=== PATIENT | female | born 1990 ===

== ENCOUNTER 2018-06-07 05:29 | Inpatient (IN) | payer OTHER ==
[~2018-06-07] VITALS: Ht 162.6 cm; Wt 88.5 kg
[2018-06-07] VITALS (13 sets, daily range): BP systolic 102–126; BP diastolic 61–86
[~2018-06-07 05:29] MED LIST: AMITRIPTYLINE25 MG ORAL; GABAPENTIN300 MG ORAL; GABAPENTIN600 MG ORAL; PRILOSEC OTC20 MG ORAL; PROZAC20 MG ORAL; SOMA350 MG PO; TRAMADOL HCL100 M2 ORAL
[2018-06-07] MEDS ORDERED: Vancomycin 1gm/D5W 275ml IVPB ONE ×2 (06:00)
[2018-06-07] MEDS ORDERED: Pantoprazole Inj IVP ONE (06:00)
[2018-06-07] MEDS ORDERED: Pantoprazole Inj ONE (06:16)
[2018-06-07] MEDS ORDERED: Vancomycin 1gm vial IVPB ONE (06:16)
[2018-06-07] MEDS ORDERED: Rocuronium Bromide 50mg/5ml Inj IV ONE (06:17)
[2018-06-07] MEDS ORDERED: LR 1000ml 1,000 ML IVLG SCH (06:20)
[2018-06-07] MEDS ORDERED: Sodium Chloride 10ml vial INJ ONE (06:24)
[2018-06-07] MEDS ORDERED: DiphenhydrAMINE 50mg/ml Inj IVP PRN (06:30)
[2018-06-07] MEDS ORDERED: Metoclopramide 10mg/2ml Inj IVP PRN (06:30)
[2018-06-07] MEDS ORDERED: HYDROcodone/Acetamin 7.5/325 tab ORAL PRN ×2 (06:30→14:00)
[2018-06-07] MEDS ORDERED: fentaNYL 100 mcg/2 mL IV PRN (06:30)
[2018-06-07] MEDS ORDERED: Labetalol 5mg/ml 20ml vial IV PRN (06:30)
[2018-06-07] MEDS ORDERED: Atropine Sulfate 0.4mg/ml inj IVP PRN (06:30)
[2018-06-07] MEDS ORDERED: Acetaminophen (Non formulary) 100 ML IV SCH (06:30)
[2018-06-07] MEDS ORDERED: oxyCODONE HCL/Acetaminophen 5/325mg ORAL PRN (06:30)
[2018-06-07] MEDS ORDERED: LORazepam Inj 2mg/ml 1ml IV PRN (06:30)
[2018-06-07] MEDS ORDERED: Ketorolac 30mg Inj IV PRN ×2 (06:30)
[2018-06-07] MEDS ORDERED: HYDROcodone/Acetamin 5/325 tab ORAL PRN (06:30)
[2018-06-07] MEDS ORDERED: Hydromorphone 0.5mg/0.5ml inj IVP PRN (06:30)
[2018-06-07] MEDS ORDERED: Midazolam 2mg/2ml Inj IVP PRN (06:30)
[2018-06-07] MEDS ORDERED: Meperidine 50mg/ml Inj(FOR RIGORS ONLY) IVP PRN (06:30)
--- NOTE | 2018-06-07 06:36 | Anethesia Preoperative Eval ---
Anesthesia Pre-op PMH/ROS General Date of Evaluation: Jun 07, 2018 Time of Evaluation: 07:41 Anesthesiologist: Justin ASA Score: ASA 2 Mallampati Score Class I : Soft palate, uvula, fauces, pillars visible Class II: Soft palate, uvula, fauces visible Class III: Soft palate, base of uvula visible Class IV: Only hard plate visible Mallampati Classification: Class II Surgeon: Marty Diagnosis: Back Pain Surgical Procedure: TLIF L5-S1 Anesthesia History: none Family History: no anesthesia problems Allergies: Coded Allergies: No Known Allergies (Unverified , 06/01/18) Medications: see eMAR Patient NPO?: Yes Past Medical History Pulmonary: Reports: asthma Other: obesity - BMI 34 PSxH Narrative: TLIF L5-S1 2017 Anesthesia Pre-op Phys. Exam Physician Exam Last Vital Signs Date Time Temp Pulse Resp B/P (MAP) Pulse Ox O2 Delivery O2 Flow Rate FiO2 06/07/18 06:08 Room Air Constitutional: NAD Neurologic: CN 2-12 intact Cardiovascular: RRR Respiratory: CTA Gastrointestinal: S/NT/ND Airway Exam Mallampati Score: Class II MO: full ROM: full Teeth: intact Anesthesia Pre-op A/P Labs Urine Test Test 06/07/18 05:45 Urine HCG, Qualitative Negative (NEGATIVE) Risk Assessment & Plan Assessment: ASA 2 Plan: GA, SED, GlideScope Go Status Change Before Surgery: No Pre-Antibiotics Dru Gram Vancomycin IV Given Within 1 Hr of Incision: Yes Time Given: 08:06 Washington Anderson MD Jun 07, 2018 06:36
[2018-06-07] MEDS ORDERED: Dexamethasone 4mg/ml vial ONE (06:51)
[2018-06-07] MEDS ORDERED: Lidocaine 1% MPF 10mg/ml 5ml ONE (06:51)
[2018-06-07] MEDS ORDERED: fentaNYL 100 mcg/2 mL IV ONE ×3 (06:52→13:17)
[2018-06-07] MEDS ORDERED: Lidocaine 1% Plain 30 ml INJ ONE ×3 (06:54→11:50)
[2018-06-07] MEDS ORDERED: Propofol 1,000mg/ 100ml btl IV ONE ×3 (07:00→08:00)
[2018-06-07] MEDS ORDERED: Heparin 1000 units/ml 1ml Vial ONE (07:03)
[2018-06-07] MEDS ORDERED: Thrombin 5000 units TOPIC ONE ×3 (07:03→10:17)
[2018-06-07] MEDS ORDERED: Bacitracin Oint 15gm Tube TOPIC ONE (07:03)
[2018-06-07] MEDS ORDERED: Bacitracin 50000 Units Vial ONE (07:04)
[2018-06-07] MEDS ORDERED: Gelfoam Size TOPIC ONE (07:04)
[2018-06-07] MEDS ORDERED: Bupivacaine w/Epi 0.5% 30ml Vial INJ ONE ×2 (07:04→09:48)
[2018-06-07] MEDS ORDERED: LR 1000ml ONE (08:00)
[2018-06-07] MEDS ORDERED: Sterile Water Irrig 1000ml IRRIG ONE (08:00)
--- NOTE | 2018-06-07 08:03 | Pre-Procedure Note/Attestation ---
Pre-Procedure Note/Attestation Complete Prior to Procedure Planned Procedure: bilateral Procedure Narrative: Revision of L5-S1 fusion, removal of pedicle screws with reinsertion, posterolateral arthrodesis, with iliac crest bone, autograft, allograft, decompression at L5-S1 and application of epidural fat graft, possible revision of L5-S1 pseudoarthrosis posterior approach Attestation I attest that I discussed the nature of the procedure; its benefits; risks and complications; and alternatives (and the risks and benefits of such alternatives ), prior to the procedure, with the patient (or the patient's legal treasury representative). I attest that, if there was a reasonable possibility of needing a blood transfusion, the patient (or the patient's legal treasury representative) was given the [place] [employer] standardized written summary, pursuant to the [place] Blood Safety Act ([place] Health and Safety Code # 1645, as amended). I attest that I re-evaluated the patient just prior to the surgery and that there has been no change in the patient's H&P, except as documented below: Kirsten Ferguson MD Jun 07, 2018 08:02
[2018-06-07] MEDS ORDERED: NS Irrig 1000ml IRRIG ONE ×2 (09:47→10:04)
[2018-06-07] MEDS ORDERED: Heparin 1000 units/ml 1ml Vial INJ ONE (10:03)
[2018-06-07] MEDS ORDERED: Bacitracin 50000 Units Vial IRRIG ONE (10:03)
[2018-06-07] MEDS ORDERED: Neostigmine 1mg/ml 10ml Inj ONE (10:51)
[2018-06-07] MEDS ORDERED: Glycopyrrolate 0.2mg/ml 1ml Vial ONE ×2 (10:51→13:03)
[2018-06-07] MEDS ORDERED: Milk of Magnesia 30ml Ud ORAL PRN (14:00)
[2018-06-07] MEDS ORDERED: traMADol 50mg tab ORAL PRN (14:00)
[2018-06-07] MEDS ORDERED: HYDROmorphone 1mg/ml Carpuject IVP PRN (14:00)
--- NOTE | 2018-06-07 14:01 | Immediate Post-Op Evaluation ---
Immediate Post-Op Evalulation Immediate Post-Op Evalulation Procedure: TLIF L5-S1 Date of Evaluation: Jun 07, 2018 IV Fluids: 700 Blood Products: 0 Estimated Blood Loss: 100 Urinary Output: 825 Blood Pressure Systolic: 126 Blood Pressure Diastolic: 83 Pulse Rate: 98 Respiratory Rate: 16 O2 Sat by Pulse Oximetry: 100 Temperature (Fahrenheit): 98.4 Pain Score (1-10): 2 Nausea: No Vomiting: No Complications 0 Patient Status: awake, reacts Hydration Status: adequate Dru Gram Vancomycin IV Given Within 1 Hr of Incision: Yes Time Given: 08:06 Washington Anderson MD Jun 07, 2018 14:01
--- NOTE | 2018-06-07 14:51 | General Progress Note ---
Progress Note Progress Note Neurosurgery PO S/ Comfortable. Incisional pain under control O/ Vs: Last 24 Hour Vital Signs Date Time Temp Pulse Resp B/P (MAP) Pulse Ox O2 Delivery O2 Flow Rate FiO2 06/07/18 14:45 98.4 06/07/18 14:40 78 13 102/67 100 Nasal Cannula 3 06/07/18 14:30 77 13 107/67 100 Nasal Cannula 3 06/07/18 14:20 82 15 125/78 100 Nasal Cannula 3 06/07/18 14:10 99 14 125/71 100 Simple Mask 6 06/07/18 14:05 96 16 126/79 100 Simple Mask 6 06/07/18 14:02 98.4 97 16 126/86 100 Simple Mask 6 06/07/18 14:01 98 16 100 06/07/18 06:30 98.4 70 20 109/75 (86) 100 06/07/18 06:08 Room Air Alert and oriented x 4 Moves all extremities well Improved sensation in the right leg doing well to floor after cleared by PACU Pt's family updated and informed re: pt's condition and the exact procedure performed. no anterior cage revision was done. Kirsten Ferguson MD Jun 07, 2018 14:51
[2018-06-07] MEDS ORDERED: Lansoprazole 15mg cap ORAL SCH (16:30)
--- NOTE | 2018-06-07 16:40 | Diagnostic Imaging Report ---
INDICATION: Pain, intraoperative TECHNIQUE: Intraoperative imaging Fluoroscopy time: 41.6 seconds Total dose: 0.57510 mGym2 Total number of images: 4 COMPARISON: None FINDINGS: Intraoperative images demonstrate markers what are presumably 5 and S1 There is spinal fusion hardware pre-existing bridging these levels. Subsequent images document placement of appears to be additional hardware IMPRESSION: Intraoperative imaging, as described
[2018-06-07] MEDS: D5 1/2NS w/KCl 20mEq 1,000 ML IV SCH (17:03)
[2018-06-07] MEDS: Docusate 100mg cap ORAL SCH (17:41)
[2018-06-07] MEDS: Docusate Sod/Senna tab ORAL SCH (17:41)
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
[2018-06-07] MEDS: HYDROcodone/Acetamin 7.5/325 tab ORAL SCH ×2 (19:34→23:30)
[2018-06-07] MEDS: Vancomycin 1 GM in D5W 275 ML IVPB SCH (20:34)
[2018-06-08] VITALS: BP 103/53
[2018-06-08 04:00] VITALS: BP 95/56
[2018-06-08] MEDS: HYDROcodone/Acetamin 7.5/325 tab ORAL SCH (04:03)
[2018-06-08] MEDS: D5 1/2NS w/KCl 20mEq 1,000 ML IV SCH (04:03)
[2018-06-08 07:00] LABS: BASOPHILS % (AUTO) 0.3 % (0.0-2.0); EOSINOPHILS % (AUTO) 0.1 % (0.0-3.0); HEMATOCRIT 38.9 % (37.0-47.0); HEMOGLOBIN 13.5 G/DL (12.0-16.0); LYMPHOCYTES % (AUTO) 14.2 % (20.0-45.0); MEAN CORPUSCULAR VOLUME 84 FL (80-99); MONOCYTES % (AUTO) 5.8 % (1.0-10.0); NEUTROPHILS % (AUTO) 79.5 % (45.0-75.0); PLATELET COUNT 326 K/UL (150-450); RED BLOOD COUNT 4.62 M/UL (4.20-5.40); RED CELL DISTRIBUTION WIDTH 10.6 % (11.6-14.8); WHITE BLOOD COUNT 13.5 K/UL (4.8-10.8)
[2018-06-08 08:00] VITALS: BP 94/61
--- NOTE | 2018-06-08 08:02 | 48 Hour Post Anesthesia Eval ---
Post Anesthesia Evaluation Procedure: TLIF L5-S1 Date of Evaluation: Jun 08, 2018 Time of Evaluation: 08:01 Blood Pressure Systolic: 104 0: 56 Pulse Rate: 72 Respiratory Rate: 20 Temperature (Fahrenheit): 97.8 O2 Sat by Pulse Oximetry: 98 Airway: patent Nausea: No Vomiting: No Pain Intensity: 3 Hydration Status: adequate Cardiopulmonary Status: stable Mental Status/LOC: patient returned to baseline Follow-up Care/Observations: n/a Post-Anesthesia Complications: none Follow-up care needed: N/A Eduar Workman MD Jun 08, 2018 08:02
[2018-06-08] MEDS: Docusate 100mg cap ORAL SCH ×2 (08:51→17:34)
[2018-06-08] MEDS: Docusate Sod/Senna tab ORAL SCH ×2 (08:52→17:34)
[2018-06-08] MEDS: HYDROcodone/Acetamin 7.5/325 tab ORAL PRN ×3 (08:52→20:23)
[2018-06-08] MEDS: Vancomycin 1 GM in D5W 275 ML IVPB SCH (09:52)
--- NOTE | 2018-06-08 11:30 | Consultation ---
Consult Note Assessment/Plan Medicine consult dictated # [id number] Luis Alberto Jackson MD Jun 08, 2018 11:30
[2018-06-08 12:00] VITALS: BP 104/62
[2018-06-08 16:00] VITALS: BP 121/85
--- NOTE | 2018-06-08 17:18 | General Progress Note ---
Progress Note Progress Note S/ post-op incisional pain under conttrol. Patient ambulated several timestoday. Right leg pain significantly improved. Residual numbness in th eright leg. O/ Vs: Last 24 Hour Vital Signs Date Time Temp Pulse Resp B/P (MAP) Pulse Ox O2 Delivery O2 Flow Rate FiO2 06/08/18 16:00 97.9 88 20 121/85 (97) 100 06/08/18 12:00 98.3 66 20 104/62 (76) 100 06/08/18 09:00 Room Air 06/08/18 08:02 72 20 98 06/08/18 08:00 98.1 66 20 94/61 (72) 99 06/08/18 04:00 98.0 56 18 95/56 (69) 100 06/08/18 00:00 98.1 64 18 103/53 (70) 100 06/07/18 21:00 Nasal Cannula 3.0 06/07/18 20:00 98.2 80 18 109/65 (80) Alert and oriented x 4 Moves all extremities. lower extremities grossly intact and equal Decrease sensation in the right lateral foot, at baseline. Incision is C/D/I. HV drain removed at bedside, with problem Labs: Laboratory Tests Test 06/08/18 05:10 White Blood Count 13.5 K/UL (4.8-10.8) H Red Blood Count 4.62 M/UL (4.20-5.40) Hemoglobin 13.5 G/DL (12.0-16.0) Hematocrit 38.9 % (37.0-47.0) Mean Corpuscular Volume 84 FL (80-99) Mean Corpuscular Hemoglobin 29.2 PG (27.0-31.0) Mean Corpuscular Hemoglobin Concent 34.7 G/DL (32.0-36.0) Red Cell Distribution Width 10.6 % (11.6-14.8) L Platelet Count 326 K/UL (150-450) Mean Platelet Volume 5.6 FL (6.5-10.1) L Neutrophils (%) (Auto) 79.5 % (45.0-75.0) H Lymphocytes (%) (Auto) 14.2 % (20.0-45.0) L Monocytes (%) (Auto) 5.8 % (1.0-10.0) Eosinophils (%) (Auto) 0.1 % (0.0-3.0) Basophils (%) (Auto) 0.3 % (0.0-2.0) doing well continue with PT post-op pain management Wean gabapentin as tolerated. D/c planning. Kirsten Ferguson MD Jun 08, 2018 17:18
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
[2018-06-08 20:00] VITALS: BP 103/57
[2018-06-09] VITALS: BP 99/59
[2018-06-09] MEDS: HYDROcodone/Acetamin 7.5/325 tab ORAL PRN ×3 (02:16→11:31)
[2018-06-09 04:00] VITALS: BP 146/98
[2018-06-09 06:57] LABS: ANION GAP 6 mmol/L (5-15); BLOOD UREA NITROGEN 7 mg/dL (7-18); CARBON DIOXIDE 28 MMOL/L (21-32); CHLORIDE 106 MMOL/L (98-107); CREATININE 0.7 MG/DL (0.55-1.30); POTASSIUM 3.8 MMOL/L (3.5-5.1); SODIUM 140 MMOL/L (136-145)
[2018-06-09 06:59] LABS: BASOPHILS % (AUTO) 0.7 % (0.0-2.0); EOSINOPHILS % (AUTO) 0.5 % (0.0-3.0); HEMATOCRIT 36.3 % (37.0-47.0); HEMOGLOBIN 12.7 G/DL (12.0-16.0); LYMPHOCYTES % (AUTO) 19.8 % (20.0-45.0); MEAN CORPUSCULAR VOLUME 84 FL (80-99); MONOCYTES % (AUTO) 7.3 % (1.0-10.0); NEUTROPHILS % (AUTO) 71.7 % (45.0-75.0); PLATELET COUNT 294 K/UL (150-450); RED CELL DISTRIBUTION WIDTH 10.8 % (11.6-14.8); WHITE BLOOD COUNT 11.8 K/UL (4.8-10.8)
[2018-06-09 08:00] VITALS: BP 111/70
[2018-06-09] MEDS: Docusate Sod/Senna tab ORAL SCH (08:11)
[2018-06-09] MEDS: Docusate 100mg cap ORAL SCH (08:12)
--- NOTE | 2018-06-10 18:45 | History and Physical Report ---
DATE OF ADMISSION: 06/07/2018 NOTE: CANCELED DICTATION (WRONG DICTATION) DR: /KAI JOB#: [id number] CC: SPEEDY
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
--- NOTE | 2018-10-24 09:09 | Diagnostic Imaging Report ---
INDICATION: Pain, intraoperative TECHNIQUE: Intraoperative imaging Fluoroscopy time: 41.6 seconds Total dose: 0.61291 mGym2 Total number of images: 4 COMPARISON: None FINDINGS: Intraoperative images demonstrate markers what are presumably 5 and S1 There is spinal fusion hardware pre-existing bridging these levels. Subsequent images document placement of appears to be additional hardware IMPRESSION: Intraoperative imaging, as described
== END 2018-06-09 11:40 | disposition home or self-care (01) | DRG 460 ==
LOC: SDSOVERFLO 05:29 → 3E 15:08
DX: M51.17 Intervertebral disc disorders with radiculopathy, lumbosacral region (principal); M96.0 Pseudarthrosis after fusion or arthrodesis; Y83.8 Other surgical procedures as the cause of abnormal reaction of the patient, or of later complication, without mention of misadventure at the time of the procedure; G96.12 Meningeal adhesions (cerebral) (spinal); J45.909 Unspecified asthma, uncomplicated
CPT/HCPCS: 36415; 72020; 76000; 80048; 81025; 85025; 86850; 86900; 86901; 87081; 94003; 94150; C9399; J2405; J2710; J2765